=== PATIENT | female | born 1940 | race Caucasian/White ===

== ENCOUNTER 2017-11-03 05:23 | Observation (INO) | payer OTHER ==
[~2017-11-03] VITALS: Ht 160 cm; Wt 91.2 kg
[2017-11-03] VITALS (8 sets, daily range): BP systolic 116–184; BP diastolic 56–85
--- NOTE | ~2017-11-03 | O ---
[facility] [place] [address] OPERATIVE REPORT Name: MARIAELENA PADILLA Room #: [facility] Juan Mcgee#: [id number] Admission: 11/03/17 Attend Phys: Diaz Lazar MD Discharge: 11/04/17 Date of : 40 Report #: [id number] THIS REPORT FOR: //name// CC: NANDINI Lazar DATE OF SERVICE: 11/03/2017 PREOPERATIVE DIAGNOSIS: Left ankle and hindfoot Charcot arthropathy. POSTOPERATIVE DIAGNOSIS: Left ankle and hindfoot Charcot arthropathy. PROCEDURE: Left ankle and hindfoot tibiotalocalcaneal arthrodesis. SURGEON: Diaz Lazar M.D. FINAL OPERATIONS TECHNICIAN: Savanna Adame, critical for positioning and maintenance of alignment as well as affording ability to place hardware. ANESTHESIA: General. ESTIMATED BLOOD LOSS: Minimal. DRAINS: No drains. TOURNIQUET TIME: One hour and 15 minutes. DESCRIPTION OF PROCEDURE: The patient was brought to the operating room, where she was placed under general anesthesia. Once under adequate general anesthesia, her left lower extremity was prepped and draped in a sterile manner. The extremity was elevated, exsanguinated and a tourniquet placed to 300 mmHg. A lateral incision overlying the distal fibula was made. This was dissected sharply down to the bone. Any soft tissue was elevated off of the distal fibula. The distal 7 cm of the fibula were then excised in an oblique fashion utilizing a sagittal saw and freeing any soft tissue with a knife blade. Exposure was then made of the ankle and subtalar joints. The ankle itself had auto-fused. Therefore, the subtalar joint was exposed and any cartilaginous tissue was removed. The patient had abundant amorphous tissue. Soft tissue removed from the joint and the joint was then able to be subsequently reduced. The fibula had been morcellized on the back table and these morsels were then placed in the subtalar joint. Subsequently, utilizing fluoroscopy for guidance, a guidewire for the intramedullary nail was then placed from the plantar foot through the sinus tarsi and across the ankle joint into the tibia. Subsequently, the opening reamer was placed, opening for placement of the guide purnima for the nail. Over the guidewires, subsequent reaming to 11 mm was achieved for a size 10 intramedullary retrograde nail from [employer]. Placement of the [address] [address] OPERATIVE REPORT Name: MARIAELENA PADILLA Room #: 401-I [facility] Juan Mcgee#: [id number] Admission: 11/03/17 Attend Phys: Diaz Lazar MD Discharge: 11/04/17 Date of : 40 Report #: [id number] retrograde nail was then achieved and utilizing the outrigger guide, the posterior screws were then placed after verifying under fluoroscopy the nail was in satisfactory position. The posterior screws were placed through a separate incision overlying the posterior calcaneus. Two screws were placed through the distal locking holes. Fluoroscopy was used to verify this to be satisfactory. Two 76-mm screws were placed. Excellent fixation was achieved. We then proceeded proximally and utilizing the outrigger jig, the 2 proximal locking screws were placed as well through 2 small stab incisions, utilizing fluoroscopy to verify the position and alignment to be satisfactory. Once in place, the outrigger jig was removed. The wounds were irrigated copiously and closed with 2-0 Vicryl in the deep and subcutaneous tissues and ar were used for the skin. The wounds were dressed with Xeroform, 4 x 4s and a sterile soft compressive dressing was placed. Tourniquet was let down at 1 hour and 15 minutes. Toes were pink and warm with good capillary refill. There were no complications from the procedure. The patient tolerated the procedure well and went to the recovery room without incident. <ELECTRONICALLY SIGNED> By: Diaz Lazar MD 11/19/17 [id number] Diaz Lazar MD /nt
[~2017-11-03 05:23] MED LIST: ALPHAGAN P5 ML OPHTHALMIC; AMLODIPINE BESY10 MG PO; AZOPT OPHTH1 %/10 M1 OPHTHALMIC; HYDROCODON-ACE1 EAC7 PO; LANTUS100 UNIT/M SUBQ; LUMIGAN2.5 M1 OPHTHALMIC; NOVOLOG100 UNIT/1 SUBQ; PRAVACHOL20 MG PO; PROBIOTIC1 EAC1 PO; SERTRALINE HCL50 MG PO; TIMOPTIC 0.5%1 EACH OPHTHALMIC; TOPROL XL100 MG PO; TYLENOL EXTRA500 MG PO; VASOTEC10 MG PO
[2017-11-04 04:00] VITALS: BP 154/78
[2017-11-04 04:13] LABS: ABSOLUTE NEUTROPHILS 9.2 thou/uL (1.4-8.2); BASOPHILS 0.2 % (0.0-2.0); HEMATOCRIT 22.7 % (37.0-47.0); HEMOGLOBIN 7.5 gm/dL (12.0-15.0); LYMPHOCYTES 6.5 % (24.0-44.0); MCHC 33.2 g/dL (28.0-37.0); MCV 87.4 fL (80.0-100.0); MONOCYTES 5.2 % (1.0-8.0); PLATELET COUNT 176 thou/uL (150-400); POLYS 88.1 % (36.0-66.0); RBC 2.59 mil/uL (4.20-5.00); RDW 17.3 % (10.5-14.5); WBC 10.4 thou/uL (4.0-11.0)
[2017-11-04 04:33] LABS: CALCIUM 8.3 mg/dL (8.5-10.1); CREATININE 1.2 mg/dL (0.6-1.0); MAGNESIUM 1.5 mg/dL (1.8-2.4); POTASSIUM 4.7 mmol/L (3.5-5.1)
[2017-11-04] MEDS ORDERED: OXYCODONE-APAP1 EAC6 PO (08:15)
[2017-11-04] MEDS ORDERED: ASA5UEC PO (08:16)
[2017-11-04 09:13] VITALS: BP 150/73
[2017-11-04 10:16] VITALS: BP 150/73
== END 2017-11-04 12:15 ==
LOC: TBA 05:23 → 4N 11:53 → EDSTATUS 16:23 → PRE 16:40 → OR 17:09 → ENTRNSPT 11-04 11:53 → EDTRNSPTSTS 11-04 11:58 → 4N 11-04 12:15
PROVIDERS: Orthopaedic Surgery Foot and Ankle Surgery
DX: M14.672 Charcot's joint, left ankle and foot (principal); M19.90 Unspecified osteoarthritis, unspecified site; E11.40 Type 2 diabetes mellitus with diabetic neuropathy, unspecified; H40.9 Unspecified glaucoma; E78.5 Hyperlipidemia, unspecified; E11.22 Type 2 diabetes mellitus with diabetic chronic kidney disease; I12.9 Hypertensive chronic kidney disease with stage 1 through stage 4 chronic kidney disease, or unspecified chronic kidney disease; E11.610 Type 2 diabetes mellitus with diabetic neuropathic arthropathy; N18.9 Chronic kidney disease, unspecified; C90.00 Multiple myeloma not having achieved remission; Z85.828 Personal history of other malignant neoplasm of skin
CPT/HCPCS: 50010; 50101; 50386; 50635; 51412; 52120; 53010; 53023; 55430; 56524; 57091; 62110; 62900; 70005